=== PATIENT | female | born 1980 | race Caucasian/White ===

== ENCOUNTER → 2017-12-17 11:49 | Outpatient (CLI) | payer OTHER, MEDICAID, SELFPAY ==
[2017-12-17 12:30] LABS: Add Manual Diff / Slide Review NO; Basophils Percent Auto 0.3 % (0-2); Eosinophils Percent Auto 1.6 % (2-4); Hematocrit 36.6 % (36-46); Hemoglobin 12.4 g/dL (12.0-16.0); Lymphocytes Percent Auto 24.7 % (25-40); Mean Corpuscular HGB Conc 33.9 % (30-36); Mean Corpuscular Hemoglobin 29.9 PG (26-34); Mean Corpuscular Volume 88.1 fL (80-100); Monocytes Percent Auto 7.4 % (3-14); Neutrophils Absolute Auto 5200 /uL (3000-5900); Platelet Count 243 X10^3/uL (150-400); Red Blood Cell Count 4.15 X10^6/uL (4.0-5.2); Red Cell Distribution Width 15.4 % (11.6-14.8); White Blood Cell Count 7.9 X10^3/uL (4.5-11.0)
[2017-12-17 20:47] LABS: Hepatitis B Surface Antigen NEGATIVE s/c (NEGATIVE); Rubella Antibody IgG 58.9 IU/mL (>15)
[2017-12-17 20:57] LABS: HIV 1 and 2 Antibody NEGATIVE (NEGATIVE); Hep C Virus Ab w/Reflex Quant NEGATIVE s/c (NEGATIVE)
[2017-12-19 15:09] LABS: HSV 2 IGG AB < 0.90 index (< 0.90)
[2017-12-22 15:26] LABS: Rapid Plasma Reagin NON-REACTIVE
== END ==
PROVIDERS: Visit Provider Obstetrics & Gynecology
DX: Z34.91 Encounter for supervision of normal pregnancy, unspecified, first trimester (principal)
CPT/HCPCS: 36415; 80055; 86695; 86696; 86703; 86787; 86803; 86850; 86900; 86901; 87086

== ENCOUNTER → 2018-01-14 14:55 | Outpatient (CLI) | payer OTHER, MEDICAID, SELFPAY ==
[2018-01-14 17:59] LABS: Urine Amphetamines Negative (Negative); Urine Barbiturates Negative (Negative); Urine Benzodiazepines Negative (Negative); Urine Cocaine Negative (Negative); Urine MDMA Negative (Negative); Urine Methadone Negative (Negative); Urine Methamphetamines Negative (Negative); Urine Morphine/Opi cutoff 2000 Negative (Negative); Urine Oxycodone Negative (Negative); Urine Phencyclidine Negative (Negative); Urine Tetrahydrocannabinol Negative (Negative); Urine Tricyclic Antidepressant Negative (Negative)
== END ==
PROVIDERS: Visit Provider Obstetrics & Gynecology
DX: Z34.81 Encounter for supervision of other normal pregnancy, first trimester (principal)
CPT/HCPCS: 80305

== ENCOUNTER → 2018-02-11 11:06 | Outpatient (CLI) | payer OTHER, MEDICAID, SELFPAY ==
[2018-02-16 13:34] LABS: AFP, Serum 44.8 ng/mL; Calc Gestational Age 17.1; Cigarette Smoker Y; Donated Egg NOT GIVEN; Donor Egg Age NOT GIVEN; Estriol, Free 0.89 ng/mL; Inhibin A, Dimeric 411 pg/mL; Maternal Weight 143 lbs; Number of Fetuses NOT GIVEN; Previous Pregnancy Down Syndro NOT GIVEN; hCG, MoM 1.58; hCG, Serum 44.9 IU/mL
== END ==
PROVIDERS: Visit Provider Obstetrics & Gynecology
DX: Z34.92 Encounter for supervision of normal pregnancy, unspecified, second trimester (principal)
CPT/HCPCS: 36415; 82105; 82677; 84702; 86336

== ENCOUNTER → 2018-03-05 10:08 | Outpatient (CLI) | payer OTHER, MEDICAID, SELFPAY ==
--- NOTE | 2018-03-05 10:10 | DI.US.S_ITS ---
PROCEDURE: US OB >= 14 WEEKS FETUS INDICATIONS: ANATOMY OUTSIDE/PRIOR DATING DATA: Last menstrual period (LMP): 10/14/17. LMP-based estimated date of delivery (ZENOBIA): 07/06/18. First dating scan (date and location): 12/19/17. Estimated date of delivery (ZENOBIA) from first dating scan: 07/21/18. TECHNIQUE: Real-time scanning was performed of the fetus, with image documentation and biometric measurements. Endovaginal scanning: No COMPARISON: [facility], , OB >= 14 WEEKS FETUS, 02/11/2018, 10:58. FINDINGS: General: A single living intrauterine gestation is present. Presentation: Vertex. Placenta: Placental position is posterior, without previa. Amniotic fluid index: 12.2 cm, normal range is 5-24 cm. heart rate: 141 beats per minute. Maternal cervical canal: 3.7 cm long. Normal lower limit is 2.5 cm. biometrics: Biparietal diameter: 20 weeks 2 days Head circumference: 20 weeks Abdominal circumference: 19 weeks 6 days Femur length: 20 weeks 2 days Estimated gestational age from initial scan: not applicable. Composite gestational age from present scan: 20 weeks 2 days Measurement variability for biometric dating: +/- 7 days from 14 weeks to 15 weeks 6 days gestation, +/- 10 days from 16 weeks to 21 weeks 6 days gestation, +/- 2 weeks from 22 weeks to 27 weeks 6 days gestation, +/- 3 weeks for 28 weeks gestation or later. weight reference: 4500 g or EFW >90/95% is considered macrosomia or large for gestational age. EFW <10% is small for gestational age. EFW 5% or less is considered intra-uterine growth restriction. Anatomic survey: Neuro: Ventricles are non-dilated at less than 10 mm. Cisterna magna is normal at 3-11 mm. Cerebellum is normal in size and morphology. Nuchal skin fold: Normal at less than 6 mm between 14-21 weeks gestational age. Face: Nose and lips, facial profile are normal. Spine: No evidence for spina bifida. Heart: 4-chambered heart is present, with normal ventricular outflow tracts. Diaphragm: Diaphragm is intact. Stomach: Left-sided stomach is present. Kidneys: No hydronephrosis. Normal is less than 5 mm in 2nd trimester, less than 7 mm in 3rd trimester. Cord: 3-vessel cord has orthotopic insertion. Bladder: Normal in size. Extremities: All 4 extremities identified. IMPRESSION: 1. Single living IUP with mean gestational age of 20 weeks 2 days corresponding to ultrasound ZENOBIA of 07/21/18. 2. Normal anatomic survey. Dictated by: Dennys Zelaya RRA Interpreted: Shruthi Gleason MD on 03/05/2018 at 11:12 Approved by: Shruthi Gleason MD, PhD on 03/05/2018 at 14:35
== END ==
PROVIDERS: Visit Provider Obstetrics & Gynecology
DX: Z34.82 Encounter for supervision of other normal pregnancy, second trimester (principal); Z36.89 Encounter for other specified antenatal screening; Z3A.20 20 weeks gestation of pregnancy
CPT/HCPCS: 76811

== ENCOUNTER → 2018-04-03 14:07 | Outpatient (CLI) | payer OTHER, MEDICAID, SELFPAY ==
[2018-04-03 16:04] LABS: Hematocrit 29.7 % (36-46); Hemoglobin 10.1 g/dL (12.0-16.0)
[2018-04-03 16:27] LABS: GTT (PREG) 1 Hour PP 50gm Dose 175 mg/dL (76-139)
== END ==
PROVIDERS: Visit Provider Obstetrics & Gynecology
DX: Z3A.22 22 weeks gestation of pregnancy (principal)
CPT/HCPCS: 82950; 85014; 85018

== ENCOUNTER → 2018-04-08 07:22 | Outpatient (CLI) | payer OTHER, MEDICAID, SELFPAY ==
[2018-04-08 10:07] LABS: Glucose Fasting Gestational 72 mg/dL (76-95)
[2018-04-08 10:10] LABS: Glucose 1 Hour Gest 135 mg/dL (76-180)
[2018-04-08 12:00] LABS: Glucose 2 Hour Gest 108 mg/dL (76-155)
[2018-04-08 12:02] LABS: Glucose Tol Interp,Gestational INTERPRETATION
[2018-04-08 12:45] LABS: Glucose 3 Hour Gest 75 mg/dL (76-140)
== END ==
PROVIDERS: Visit Provider Obstetrics & Gynecology
DX: R73.09 Other abnormal glucose (principal)
CPT/HCPCS: 36415; 82951; 82952

== ENCOUNTER → 2018-06-17 08:16 | Outpatient (CLI) | payer OTHER, MEDICAID, SELFPAY ==
[2018-06-18 16:27] LABS: Strep Grp B PCR NEG for Grp B Strep
== END ==
PROVIDERS: Visit Provider Obstetrics & Gynecology
DX: Z34.83 Encounter for supervision of other normal pregnancy, third trimester (principal)
CPT/HCPCS: 87653

== ENCOUNTER → 2018-07-08 10:39 | Outpatient (CLI) | payer OTHER, MEDICAID, SELFPAY | PROVIDERS: Visit Provider Obstetrics & Gynecology | DX: Z34.93 Encounter for supervision of normal pregnancy, unspecified, third trimester (principal); Z3A.38 38 weeks gestation of pregnancy | CPT/HCPCS: 87086 ==

== ENCOUNTER 2018-07-13 20:00 | Outpatient (CLI) | payer OTHER, MEDICAID, SELFPAY | END 2018-07-13 21:28 | disposition home or self-care (01) | LOC: OB 07-14 14:56 | PROVIDERS: Visit Provider Obstetrics & Gynecology | DX: Z34.83 Encounter for supervision of other normal pregnancy, third trimester (principal); R10.9 Unspecified abdominal pain; Z3A.38 38 weeks gestation of pregnancy | CPT/HCPCS: 59025; G0378; G0379 ==

== ENCOUNTER 2018-07-20 06:41 | Inpatient (IN) | payer OTHER, MEDICAID, SELFPAY ==
[2018-07-20 07:20] VITALS: BP 123/71
[2018-07-20 07:31] VITALS: BP 123/71
[2018-07-20] MEDS: LACTATED RINGERS 1,000 ML 100 ML IV ×4 (07:47→17:38)
[2018-07-20] MEDS: OXYTOCIN PREMIX 30 UNIT/500 ML PLAST..BAG IV (07:47)
[2018-07-20 08:15] LABS: Add Manual Diff / Slide Review NO; Basophils Absolute Auto 100 /uL (0-100); Basophils Percent Auto 0.5 % (0-2); Eosinophils Absolute Auto 200 /uL (0-450); Eosinophils Percent Auto 1.7 % (2-4); Hematocrit 34.1 % (36-46); Hemoglobin 11.6 g/dL (12.0-16.0); Lymphocytes Absolute Auto 2200 /uL (1100-4500); Lymphocytes Percent Auto 19.2 % (25-40); Mean Corpuscular HGB Conc 33.9 % (30-36); Mean Corpuscular Hemoglobin 30.7 PG (26-34); Mean Corpuscular Volume 90.5 fL (80-100); Monocytes Absolute Auto 1000 /uL (0-900); Monocytes Percent Auto 9.1 % (3-14); Neutrophils Absolute Auto 8000 /uL (1500-7000); Neutrophils Percent Auto 69.5 % (50-75); Platelet Count 262 X10^3/uL (150-400); Red Blood Cell Count 3.77 X10^6/uL (4.0-5.2); White Blood Cell Count 11.5 X10^3/uL (4.5-11.0)
[2018-07-20] MEDS: fentaNYL 100 MCG/2 ML INJ IV (15:25)
--- NOTE | 2018-07-20 19:43 | PM.OBHP.1 ---
OB HPI Date/Time Date of admission: 07/20/18 Date Patient Seen: 07/20/18 Time Patient Seen: 11:30 History of Present Condition Chief complaint: evaluation of labor : 2 Para: 1 Narrative: Sheila Thompson is a 38 year old female 2 para 1 at 39-,6/7 weeks gestation for induction of labor Indications Indication for induction OB: other (Advanced maternal age, smoker) History of Present care: initiated at week # (12), number of visits (12) and pounds weight gain (8) Dating criteria: LMP confirmed by 1st trimester US Ultrasounds: normal 1st trimester US and normal mid trimester US Obstetrical complications: none Medical complications: neurological (Migraine) and psychiatric (Anxiety) Preadmission Labs Blood type: A (+) positive -: Antibody screen: negative, GBS status: negative, HBsAG: negative, HIV: negative, HSV 1: positive, HSV 2: negative and RPR/VDLR: negative -: Chlamydia screen: not detected and Gonorrhea screen: not detected -: Rubella: immune and Varicella: immune HCT: 29.7 HCAB: negative PAP: Abnormal (LGSIL) Urine: Mixed 1 hr GTT: 175 3 hr GTT: 1 hr (135), 2 hr (108) and 3 hr (75) Fasting blood glucose: 72 Prior (ies) History: 1 5#12oz Evaluation Evaluation Baseline heart rate: 135 Variability: Moderate (11-25) monitor accelerations: Present monitor decelerations: Absent Uterine Contraction Intensity: Strong/Firm Category of Tracing: I Cervical dilation (cm): 5 Cervical effacement (%): 80 station: -1 Laboratory results: Laboratory Tests 07/20/18 07/20/18 07:00 07:00 WBC 11.5 H RBC 3.77 L Hgb 11.6 L Hct 34.1 L MCV 90.5 MCH 30.7 MCHC 33.9 RDW 14.0 Plt Count 262 Neut % (Auto) 69.5 Lymph % (Auto) 19.2 L [place] % (Auto) 9.1 Eos % (Auto) 1.7 L Baso % (Auto) 0.5 Neut # (Auto) 8000 H Lymph # (Auto) 2200 [place] # (Auto) 1000 H Eos # (Auto) 200 Baso # (Auto) 100 Blood Type A Positive Antibody Screen Negative PFSH Medical History Anxiety (Chronic) History of live (Resolved 07/12/00) Surgical History History of cholecystectomy (Resolved 08/21/00) Family History Father Diabetes mellitus Grandmother MVA (motor vehicle accident) Mother Epilepsy Dementia Grandfather Heart attack Grandmother Head trauma Brother ADHD (attention deficit hyperactivity disorder) Sister Anxiety Depression Diabetes mellitus Social History Smoking Status: Current every day smoker Social History Smoking Status: Current every day smoker Meds Home Medications Medication Instructions Recorded Confirmed Type 1 tab PO DAILY #90 tab 12/01/17 07/20/18 Rx vitamin,calcium,hzmevdhe-xamx-lcgws acid tablet citalopram 10 mg tablet 10 mg PO DAILY #30 tab 12/19/17 07/20/18 Rx Double Electric Breast Pump #1 ea 05/06/18 07/20/18 Rx ferrous gluconate 324 mg (38 mg 324 mg PO DAILY #30 tab 05/18/18 07/20/18 Rx iron) tablet Allergies Allergy/AdvReac Type Severity Reaction Status Date / Time cephalexin Allergy Severe FACIAL Verified 11/24/17 17:58 SWELLING Exam Vital Signs (past 8 hours): Generally: Patient is sitting up in bed, no acute distress Lungs: Clear to auscultation bilaterally Cardiovascular: Regular rate and rhythm Fundal height: 38 cm Extremities: Negative Homans, no edema Objective Labs Result Diagrams: 07/20/18 07:00 Labs: Laboratory Results - last 24 hr 07/20/18 07/20/18 07:00 07:00 WBC 11.5 H RBC 3.77 L Hgb 11.6 L Hct 34.1 L MCV 90.5 MCH 30.7 MCHC 33.9 RDW 14.0 Plt Count 262 Neut % (Auto) 69.5 Lymph % (Auto) 19.2 L [place] % (Auto) 9.1 Eos % (Auto) 1.7 L Baso % (Auto) 0.5 Neut # (Auto) 8000 H Lymph # (Auto) 2200 [place] # (Auto) 1000 H Eos # (Auto) 200 Baso # (Auto) 100 Blood Type A Positive Antibody Screen Negative Assessment and Plan (1) 39 weeks gestation of : Current visit: Yes Status: Acute (2) Elderly multigravida in third trimester: Current visit: Yes Status: Acute (3) Smoker: Current visit: Yes Status: Acute Plan: Assessment: 38-year-old 2 para 1 at 39-,6/7 weeks gestation for induction of labor due to advanced maternal age and smoker Plan: Pitocin per protocol 2 Artificial rupture of membranes with small amount of clear amniotic fluid Epidural as necessary Expected management to spontaneous vaginal delivery
--- NOTE | 2018-07-20 19:53 | PM.OBPRVD ---
Delivery date: 07/20/18 Intrapartal events: Intolerance (Prolonged decel at 5cm, Deep variable decels during ) Induction method: per pitocin protocol Delivery augmentation: rupture of membranes Delivery monitor: external FHT and external uterine Route of delivery: vacuum extraction Indication for instrumentation: nonreassuring FHR tracing Episiotomy description: None L&D Laceration Description: None Estimated blood loss (mL): 100 Anesthesia type: Epidural Complications: Double nuchal cord requiring vacuum extraction Narrative: Patient complete and pushed for 20 min. 1823, a live male female delivered with vacuum extraction due to deep variable decelerations during pushing. A double nuchal cord was cut on the perineum. The remainder of the body delivered without difficulty and was placed on mom's abdomen. Pitocin was given in the IV fluids. Cord bloods were obtained. At 1825, the placenta delivered intact with a three-vessel cord. Fundus firm. No lacerations. Apgars 8 at 1 min and 9 at 5 min. Estimated blood loss 100 cc. Epidural analgesia. . Mom and infant stable to recovery. Plan for aftercare: To routine care
[2018-07-21] MEDS: IBUPROFEN 600 MG TABLET PO ×3 (00:34→12:10)
[2018-07-21 07:01] LABS: Hematocrit 31.8 % (36-46); Hemoglobin 10.3 g/dL (12.0-16.0)
[2018-07-21] MEDS: PRENATAL VIT,CALC/IRON/FOLIC 1 TABLET 1 TAB PO (09:57)
[2018-07-21] MEDS: DOCUSATE 250 MG CAPSULE PO (09:57)
--- NOTE | 2018-07-21 14:19 | PM.OBDS.1 ---
Discharge Providers Date of admission: 07/20/18 06:41 Consults: 07/20/18 22:01 Consult to [employer] Routine Comment: Discharge provider: Nicci Fajardo MD Discharge Date: 07/21/18 Summary Date Patient Seen: 07/21/18 Time Patient Seen: 14:20 Hospital Course: Patient is a 38-year-old 2 para 2 who presented on 07/20/2018 for scheduled induction of labor at 39-,6/7 weeks gestation. She was started on Pitocin. Artificial rupture of membranes was performed with clear amniotic fluid. She progressed to complete dilation. She had a vacuum assisted vaginal delivery secondary to deep variable deceleration with the end of pushing. There were nuchal cord x2 which were cut on the perineum. She had no lacerations. Her course was unremarkable. Peripartum Data Delivery Method: Assisted Delivery (Vacuum) Laceration description: None Episiotomy description: None Procedures: Pitocin induction of labor Artificial rupture of membranes Epidural analgesia complications: none Discharge Diagnosis (1) 39 weeks gestation of : Status: Acute (2) Elderly multigravida in third trimester: Status: Acute (3) Smoker: Status: Acute Status at Discharge Functional status at discharge: independent ambulation Overall status at discharge: patient is progressing back to baseline Time Spent with Patient Total time spent providing and/or coordinating discharge services: Less than 30 minutes Time spent discussing smoking cessation with patient: 3 to 10 minutes Objective Labs Result Diagrams: 07/21/18 06:50 Labs: Laboratory Results - last 24 hr 07/21/18 06:50 Hgb 10.3 L Hct 31.8 L Discharge Plan Discharge Plan Patient Disposition: Home Discharge comment: Call with fever, chills or bleeding vaginally more than a pad in an hour Discharge Med Rec/Prescriptions Prescriptions: Continued prenat.vits,surekha,lsn-oiju-ubtlq tablet 1 tab PO DAILY Qty: 90 RF: 3 ferrous gluconate 324 mg (38 mg iron) tablet 324 mg PO DAILY Qty: 30 RF: 6 citalopram [Celexa] 10 mg tablet 10 mg PO DAILY Qty: 30 RF: 3 No Action Double Electric Breast Pump Qty: 1 RF: 0 Follow up/Referrals: Nicci Fajardo MD [Physician] - 6 Weeks Provider Discharge Instructions Diet: Diet as Tolerated Activity: No intercourse Skin/Wound/Dressing Care Report to your healthcare provider any signs of infection, such as:: chills, fever, increased pain and unusual drainage Visit Report/Discharge Packet Instructions: DI for Labor and Delivery, Vaginal Discharge Data Attending Provider: Nicci Fajardo Admit Date/Time: 07/20/18 06:41
[2018-07-21 15:23] VITALS: BP 114/65; PULSE 77; RESP 16; TEMP 36.8
== END 2018-07-21 16:06 | disposition home or self-care (01) | DRG 560 ==
PROVIDERS: Admitting Provider Obstetrics & Gynecology; Visit Provider Obstetrics & Gynecology
DX: O69.1XX0 Labor and delivery complicated by cord around neck, with compression, not applicable or unspecified (principal); Z3A.39 39 weeks gestation of pregnancy; Z37.0 Single live birth; O76 Abnormality in fetal heart rate and rhythm complicating labor and delivery
CPT/HCPCS: 01967; 36415; 59050; 59409; 85014; 85018; 85025; 86850; 86900; 86901; G0379; J2405; J2590; J3010

== ENCOUNTER → 2018-09-01 12:40 | Outpatient (CLI) | payer OTHER, MEDICAID, SELFPAY ==
[2018-09-01 15:58] LABS: Free T4, Direct Thyroxine 1.09 ng/dL (0.78-2.19)
[2018-09-01 16:15] LABS: Thyroid Stimulating Hormone 1.27 uIU/mL (0.47-4.68)
== END ==
PROVIDERS: Visit Provider Obstetrics & Gynecology
DX: R53.83 Other fatigue (principal); Z39.2 Encounter for routine postpartum follow-up
CPT/HCPCS: 36415; 84439; 84443

== ENCOUNTER → 2018-09-07 07:40 | Outpatient (CLI) | payer OTHER, MEDICAID, SELFPAY ==
--- NOTE | 2018-09-07 07:42 | DI.US.S_ITS ---
PROCEDURE: US THYROID INDICATIONS: Enlarged thyroid on exam TECHNIQUE: Real-time scanning was performed of the thyroid gland, with image documentation. COMPARISON: None. FINDINGS: Right: Thyroid lobe measures 5.8 x 2.2 x 1.4 cm, and is homogeneous in echotexture. Left: Thyroid lobe measures 5.3 x 2.1 x 1.5 cm, and is homogenous in echotexture. Isthmus: 5 mm thick. Nodule number: 1 Location: right mid/medial Size: 0.6 x 0.3 x 0.6 cm. Composition: Predominantly cystic Echogenicity: The hypoechoic Shape: wider than tall. Margins: Smooth Echogenic foci: None Total points: 2 ACR TI-RADS category: 2 Nodule number: 2 Location: Left mid Size: 1.0 x 0.6 x 0.9 cm. Composition: Solid Echogenicity: Isoechoic Shape: wider than tall. Margins: Smooth Echogenic foci: None Total points: 3 ACR TI-RADS category: 3 IMPRESSION: 1. A 1.0 cm isoechoic left mid thyroid nodule which is of mild suspicion. FNA if 2.5 cm or larger, follow up if 1.5 cm or larger. Recommend surveillance imaging at one, 3, and 5 years 2. A 0.6 cm hypoechoic right thyroid nodule which is not suspicious. No fine-needle aspiration needed. Attention can be made on subsequent routine surveillance of the left thyroid nodule. ACR TI-RADS definitions and recommendations: TI-RADS 1 (benign): 0 points. FNA not needed. TI-RADS 2 (not suspicious): 2 points. FNA not needed. TI-RADS 3 (mildly suspicious): 3 points. * FNA if 2.5 cm or larger, follow up if 1.5 cm or larger (at 1, 3, and 5 years). TI-RADS 4 (moderately suspicious): 4-6 points. * FNA if 1.5 cm or larger, follow up if 1 centimeters or larger (at 1, 2, 3, and 5 years). TI-RADS 5 (highly suspicious): 7 points or more. * FNA if 1 cm or larger, follow up if 0.5 cm or larger (every year for 5 years). Dictated by: Richard Baptiste M.D. on 09/07/2018 at 8:40 Approved by: Richard Baptiste M.D. on 09/07/2018 at 8:54
== END ==
PROVIDERS: Family Provider Obstetrics & Gynecology; Visit Provider Obstetrics & Gynecology
DX: E04.2 Nontoxic multinodular goiter (principal)
CPT/HCPCS: 76536

== ENCOUNTER → 2018-11-26 08:24 | Outpatient (CLI) | payer OTHER, MEDICAID, SELFPAY ==
[2018-11-26 09:38] LABS: Hematocrit 39.5 % (36-46); Hemoglobin 13.2 g/dL (12.0-16.0); Mean Corpuscular HGB Conc 33.3 % (30-36); Mean Corpuscular Hemoglobin 31.5 PG (26-34); Mean Corpuscular Volume 94.6 fL (80-100); Platelet Count 224 X10^3/uL (150-400); Red Blood Cell Count 4.18 X10^6/uL (4.0-5.2); Red Cell Distribution Width 13.7 % (11.6-14.8); White Blood Cell Count 8.9 X10^3/uL (4.5-11.0)
[2018-11-26 10:13] LABS: Alanine Aminotransferase 20 IU/L (9-52); Albumin Globulin Ratio 1.5 (1.0-2.8); Alkaline Phosphatase 51 U/L (38-126); Aspartate Aminotransferase 23 IU/L (14-36); Bilirubin Total 0.6 mg/dL (0.2-1.3); Blood Urea Nitrogen 7 mg/dL (7-17); Calcium 9.4 mg/dL (8.4-10.2); Carbon Dioxide 26 mmol/L (22-32); Chloride 109 mmol/L (98-107); Estimated Glomerular Filt Rate > 60.0 mL/min (>60); Globulin 2.7 g/dL (1.7-4.1); Glucose 88 mg/dL (70-100); HEMOLYSIS < 15 (0-50); Potassium 4.8 mmol/L (3.4-5.1); Sodium 141 mmol/L (137-145); Total Protein 6.7 g/dL (6.3-8.2)
== END ==
PROVIDERS: Family Provider Obstetrics & Gynecology; PCP Nurse Practitioner Family; Visit Provider Nurse Practitioner Family
DX: D64.9 Anemia, unspecified (principal)
CPT/HCPCS: 36415; 80053; 85027

== ENCOUNTER 2018-11-26 08:34 | Day surgery (SDC) | payer OTHER, MEDICAID, SELFPAY ==
[2018-11-11 08:14] VITALS: BMI 24.3
[2018-11-26] VITALS (7 sets, daily range): BP systolic 98–135; BP diastolic 65–87; PULSE 62–84; RESP 13–18; TEMP 36.3–37.4; O2SAT 95–100; BMI 24.3
--- NOTE | 2018-11-26 | PATH_ITS ---
[facility] Accession Number: [id number] . 01 Material submitted: . endocervix - CERVIX, ENDOCERVICAL . 01 Clinical history: . ANTERIOR LIP OF CERVIX - LONG SUTURE AT 12:00 POSTERIOR LIP OF THE CERVIX - SHORT SUTURE AT 6:00 ENDOCERVICAL COMPONENT UNTAGGED . 02 Diagnosis: Anterior Lip of Cervix, Posterior Lip of Cervix, and Endocervix, LEEP Biopsies: Anterior lip, long suture 12 o'clock: High-grade squamous intraepithelial lesion/JANELL 2-3 with gland neck involvement and low grade squamous intraepithelial lesion/JANELL-1. High-grade squamous intraepithelial lesion/JANELL 2-3 focally involves the endocervical margin. The apparent ectocervical margin is negative for dysplasia. No invasive tumor identified. . Posterior lip, short suture 6 o'clock: Low-grade squamous intraepithelial lesion/JANELL-1. Low-grade squamous intraepithelial lesion/JANELL-1 focally involves the endocervical margin. The apparent ectocervical margin is negative for dysplasia. Negative for high-grade dysplasia and invasive tumor. . Grossly described as piece #3 (presumed endocervix untagged): High-grade squamous intraepithelial lesion/JANELL 2-3 and adjacent low-grade squamous intraepithelial lesion/JANELL-1. The apparent tissue margins are negative for dysplasia. No invasive tumor identified. . Grossly described as piece #4 (presumed endocervix untagged): High-grade squamous intraepithelial lesion/JANELL 2-3. Detached fragment of high-grade squamous intraepithelial lesion/JANELL-2 is present in proximity to an inked margin. Tissue margins indeterminate due to possible tissue fragmentation. No invasive tumor identified. [facility]/11/30/2018 . 02 Comment: This biopsy correlates with Pap smear #[id number]. . 02 Electronically signed: . Lani Garcia MD, Pathologist NPI- [id number] . 01 Gross description: . Received in formalin, labeled anterior lip of cervix-long suture @ 12 o'clock, posterior lip of the cervix-short suture @ 6 o'clock, endocervical component-untagged, are four pieces of cervical tissue. Piece #1 (1.8 x 1.5 x 0.8 cm) contains a two-tailed long suture indicating 12 o'clock. Piece #2 (2.5 x 1.0 x 0.2 cm) contains a two-tailed short suture indicating 6 o'clock. Piece #3 (1.8 x 1.0 x 0.3 cm) and piece #4 (1.5 x 1.0 x 0.4 cm) are unoriented. The pieces have johnson-pink smooth shiny and focally rough mucosa. No nodules, masses or lesions are identified. The possible endocervical margins are inked orange and the possible ectocervical and stromal margins are inked blue. The tissue is serially sectioned and submitted as follows: (A1-A3) piece #1, entirely submitted left to right; (A4-A6) piece #2, entirely submitted right to left; (A7-A8) piece #3, entirely submitted; (A9-A10) piece #4, entirely submitted. ([id number]) /MRV . 02 Pathologist provided ICD-10: N87.1 . 02 CPT . 954281, 122778, 564890 Performed at: 01 [facility] [address] [id number] MD Hermilo Coronado MD Phone: [phone] Performed at: 02 [facility] [address] [place], [place] [id number] MD Rebecca Rosario MD Phone: [phone]
[2018-11-26] MEDS: LACTATED RINGERS 1,000 ML 42 ML IV (09:00)
--- NOTE | 2018-11-26 09:16 | PM.HP.1 ---
History of Present Illness Date Patient Seen: 11/26/18 Time Patient Seen: 09:16 Chief complaint: [id number] LEEP CONE BX Narrative: Patient is a 38-year-old 2 para 2 with JANELL 2-3 of the cervix here for LEEP cone biopsy of the cervix Patient History Medical History (Updated 11/26/18 @ 09:18 by Nicci Fajardo MD) Depression (Acute) (Acute) Shingles (Acute ~09/2018) Thyroid nodule (Acute) Anxiety (Chronic) History of live (Resolved 07/20/18) Surgical History (Updated 12/15/17 @ 11:53 by Mayelin Ovalles) History of cholecystectomy (Resolved 08/21/00) Family History (Updated 12/15/17 @ 11:56 by Mayelin Ovalles) Father Diabetes mellitus Grandmother MVA (motor vehicle accident) Mother Epilepsy Dementia Grandfather Heart attack Grandmother Head trauma Brother ADHD (attention deficit hyperactivity disorder) Sister Anxiety Depression Diabetes mellitus Social History household members: children Smoking Status: Current every day smoker Tobacco: How many years used: 22 quit status: considering quitting (Patient given smoking cessation and quitline info) second hand exposure: No alcohol intake: current substance use type: does not use Family & Social History Social History: household members children Tobacco & Substance use: Tobacco type cigarettes Smoking Status Current every day smoker Smoking packs per day 0.5 alcohol intake current Substance Use Type does not use Meds Home Medications Medication Instructions Recorded Confirmed Type Double Electric Breast Pump #1 ea 05/06/18 10/30/18 Rx ferrous gluconate 324 mg (38 mg 324 mg PO DAILY #30 tab 05/18/18 11/11/18 Rx iron) tablet escitalopram 10 mg tablet 10 mg PO DAILY #90 tab 10/30/18 11/11/18 Rx Allergies Allergy/AdvReac Type Severity Reaction Status Date / Time cephalexin Allergy Severe FACIAL Verified 11/26/18 08:51 SWELLING Exam Vital Signs (past 8 hours): - 11/26/18 08:52 Temperature 97.9 F Pulse Rate 78 Respiratory Rate 16 Blood Pressure 118/65 Pulse Oximetry 98 Oxygen Delivery Method Room Air Narrative Exam Narrative: HEENT: Thyromegaly, no anterior cervical or supraclavicular lymphadenopathy. Lungs:Clear to auscultation bilaterally, no wheezes. Cardiovascular: Regular rate and rhythm, no murmurs, rubs, or gallops. Abdomen: No scars. No hepatosplenomegaly. No masses palpable. External genitalia: Normal Vagina: Normal Cervix: Normal Bimanual exam: [6 Week size uterus. Mobile.] Rectal: No masses. Colposcopic biopsy: JANELL 2-3 at 12:00 p.m. 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 The risks including bleeding, infection, and weakening of the cervix with a future . She understands these risks and agrees to proceed. A full par Q was held and consent form was signed. Time Spent With Patient Time with patient: 15-24 minutes
--- NOTE | 2018-11-26 09:19 | PM.PREOP ---
Pre-operative Note Interval Note History & Physical reviewed/Exam performed by Physician: Yes Changes to H&P: No
--- NOTE | 2018-11-26 10:23 | SUR.OPER ---
Lithotomy on padded OR bed, head on pillow, arms secured on padded arm boards at <90 degrees abduction. Legs secured in padded yellow fins stirrups.
--- NOTE | 2018-11-26 11:16 | SUR.PHASEII ---
pt arrived to phase II via stretcher. pt sitting up, alert and talking to RN. iv site clear and infusing without difficultly. pt tolerating oral intake without difficultly. no drainage observed from procedure site. pt appears comfortable at this time and denies any nausea. bed in lowest position and call light given to pt. pt awaiting arrival of friend at this time.
--- NOTE | 2018-11-30 07:50 | PM.GYNOP.1 ---
Operative Date/Time/Diagnoses Date of procedure: 11/27/18 Time of procedure: 10:30 Pre-op diagnosis: JANELL 2-3 that extends into the endocervical canal Post-op diagnosis: same Procedure: Procedures Operation Date: 11/26/18 09:45 Actual Procedures Side Surgeon p LEEP Procedure Nicci Fajardo MD Indications: JANELL 2-3 on colposcopic biopsy that extends into the endocervical canal Surgeon: Nicci Fajardo Anesthesia Type: General (LMA) Operative Notes Findings: Lugol's light area from 10-12 o'clock which extends into the endocervical canal Closure Type: not applicable Specimen(s): other (Anterior and posterior lips of the cervix, endocervical component) Estimated blood loss (mL): 10 Blood products transfused: none Procedure in detail: After informed consent was obtained, the patient was taken to the operating room where she was placed in the dorsal supine position. After adequate LMA general anesthesia was achieved, she was placed in the dorsal lithotomy position, and prepped and draped in the usual sterile fashion. A time-out was performed. A plastic coated bivalve speculum was placed into the vagina. A plastic coated single-tooth tenaculum was placed on the anterior lip of the cervix. The cervix was coated with Lugol solution. There was a Lugol's light area at the 10 to 12 o'clock position which extended into the endocervical canal. Using the large loop with settings at 60 cut and 40 cautery, the posterior lip of the cervix was excised and tagged with a short suture at 6:00 a.m.. The anterior lip of the cervix was excised and tagged at the 12 o'clock position with a long suture. Using the small loop and endocervical component was obtained and was left untagged. The ball cautery was used for hemostasis. There was some brisk bleeding from the 10 o'clock position and a haeoba-fz-osetz suture with 2 0 chromic was placed for hemostasis. Hemostasis was achieved throughout the base of the cone biopsy. The instruments were removed from the vagina. The plastic coated single-tooth tenaculum was removed from the anterior lip of the cervix. The plastic coated bivalve speculum was removed from the vagina. Sponge, lap, and instrument counts were correct x2. The patient tolerated the procedure well, and was taken to PACU in stable condition. Complications: none Post-operative Condition: stable Plan for aftercare: Home after recovery
== END 2018-11-26 11:34 | disposition home or self-care (01) ==
PROVIDERS: Family Provider Obstetrics & Gynecology; PCP Nurse Practitioner Family; Visit Provider Obstetrics & Gynecology
PROC: 0UBC7ZZ Excision of Cervix, Via Natural or Artificial Opening (ICD-10-PCS; CPT 57522; principal; 2018-11-26 09:45)
DX: N87.1 Moderate cervical dysplasia (principal); F17.210 Nicotine dependence, cigarettes, uncomplicated; D64.9 Anemia, unspecified
CPT/HCPCS: 57522; 36415; 80053; 85027; J3010

== ENCOUNTER → 2020-07-13 08:57 | Outpatient (CLI) | payer OTHER, SELFPAY ==
--- NOTE | 2020-07-13 | DI.US.S_ITS ---
PROCEDURE: US THYROID INDICATIONS: NODULES TECHNIQUE: Real-time scanning was performed of the thyroid gland, with image documentation. COMPARISON: [facility], US, US THYROID, 09/07/2018, 8:03. FINDINGS: Right: Thyroid lobe measures 6.0 x 1.5 x 2.3 cm, and is mildly diffusely heterogeneous in echotexture. Left: Thyroid lobe measures 6.2 x 1.3 x 2.1 cm, and is mildly diffusely heterogeneous in echotexture. Isthmus: 5.4 mm thick. Nodule number: 1 Location: Right mid Size: Stable at 0.6 x 0.3 x 0.7 cm. Composition: Solid Echogenicity: Hypoechoic Shape: wider than tall. Margins: Smooth Echogenic foci: None Total points: 4 ACR TI-RADS category: Moderately suspicious Nodule number: 2 Location: Left mid Size: Stable at 1.1 x 0.6 x 1.0 cm. Composition: Solid Echogenicity: Hypoechoic Shape: wider than tall. Margins: Smooth Echogenic foci: None Total points: 4 ACR TI-RADS category: Moderately suspicious IMPRESSION: Stable appearance of bilateral thyroid nodules. Recommend follow-up thyroid ultrasound in 1 year. ACR TI-RADS definitions and recommendations: TI-RADS 1 (benign): 0 points. FNA not needed. TI-RADS 2 (not suspicious): 2 points. FNA not needed. TI-RADS 3 (mildly suspicious): 3 points. * FNA if 2.5 cm or larger, follow up if 1.5 cm or larger (at 1, 3, and 5 years). TI-RADS 4 (moderately suspicious): 4-6 points. * FNA if 1.5 cm or larger, follow up if 1 cm or larger (at 1, 2, 3, and 5 years). TI-RADS 5 (highly suspicious): 7 points or more. * FNA if 1 cm or larger, follow up if 0.5 cm or larger (every year for 5 years). Dictated by: Dennys CELIS Interpreted: Angel Dickson MD on 07/13/2020 at 10:32 Approved by: Angel Dickson M.D. on 07/13/2020 at 11:21
[2020-07-13 09:58] LABS: Hematocrit 37.4 % (36-46); Hemoglobin 12.8 g/dL (12.0-16.0); Mean Corpuscular HGB Conc 34.1 % (30-36); Mean Corpuscular Volume 90.8 fL (80-100); Platelet Count 225 X10^3/uL (150-400); Red Blood Cell Count 4.12 X10^6/uL (4.0-5.2); Red Cell Distribution Width 13.7 % (11.6-14.8); White Blood Cell Count 8.2 X10^3/uL (4.5-11.0)
[2020-07-13 10:21] LABS: Alanine Aminotransferase 20 IU/L (<35); Albumin 3.9 g/dL (3.5-5.0); Albumin Globulin Ratio 1.3 (1.0-2.8); Alkaline Phosphatase 57 U/L (38-126); Aspartate Aminotransferase 25 IU/L (14-36); BUN Creatinine Ratio 28.6 (6-22); Bilirubin Total 0.4 mg/dL (0.2-1.3); Blood Urea Nitrogen 18 mg/dL (7-17); Carbon Dioxide 26 mmol/L (22-32); Chloride 105 mmol/L (98-107); Estimated Glomerular Filt Rate > 60.0 mL/min (>60); Globulin 3.1 g/dL (1.7-4.1); Glucose 91 mg/dL (70-100); HEMOLYSIS < 15 (0-50); Potassium 4.1 mmol/L (3.4-5.1); Sodium 136 mmol/L (137-145)
== END ==
PROVIDERS: Family Provider Obstetrics & Gynecology; PCP Nurse Practitioner Family; Referring Provider Nurse Practitioner Family; Visit Provider Nurse Practitioner Family
DX: E04.2 Nontoxic multinodular goiter (principal)
CPT/HCPCS: 36415; 76536; 80053; 85027

== ENCOUNTER → 2023-01-06 07:25 | Outpatient (CLI) | payer OTHER, MEDICAID, SELFPAY ==
[2023-01-06 08:07] LABS: Hematocrit 37.7 % (36-46); Hemoglobin 12.7 g/dL (12.0-16.0); Mean Corpuscular HGB Conc 33.6 % (30-36); Mean Corpuscular Hemoglobin 30.7 PG (26-34); Mean Corpuscular Volume 91.4 fL (80-100); Platelet Count 260 X10^3/uL (150-400); Red Blood Cell Count 4.12 X10^6/uL (4.0-5.2); Red Cell Distribution Width 15.2 % (11.6-14.8); White Blood Cell Count 7.3 X10^3/uL (4.5-11.0)
[2023-01-06 08:21] LABS: Alanine Aminotransferase 21 IU/L (<35); Albumin Globulin Ratio 1.3 (1.0-2.8); Alkaline Phosphatase 60 U/L (38-126); Aspartate Aminotransferase 21 IU/L (14-36); BUN Creatinine Ratio 14.7 (6-22); Bilirubin Total 0.4 mg/dL (0.2-1.3); Blood Urea Nitrogen 10 mg/dL (7-17); Calcium 9.1 mg/dL (8.4-10.2); Carbon Dioxide 22 mmol/L (22-32); Chloride 107 mmol/L (98-107); Cholesterol 144 mg/dL (140-199); Estimated Glomerular Filt Rate > 60 mL/min (>60); Glucose 93 mg/dL (70-100); HDL Cholesterol 42 mg/dL (40-60); HEMOLYSIS < 15 (0-50); LDL Cholesterol Calculated 83 mg/dL (<100); Potassium 4.3 mmol/L (3.4-5.1); Sodium 135 mmol/L (137-145); Triglycerides 97 mg/dL (35-150)
[2023-01-06 08:51] LABS: TSH w/ Reflex to FT4 2.67 uIU/mL (0.47-4.68)
== END ==
PROVIDERS: Family Provider Obstetrics & Gynecology; PCP Registered Nurse Diabetes Educator; Referring Provider Registered Nurse Diabetes Educator; Visit Provider Registered Nurse Diabetes Educator
DX: Z00.00 Encounter for general adult medical examination without abnormal findings (principal); B35.1 Tinea unguium; Z51.81 Encounter for therapeutic drug level monitoring
CPT/HCPCS: 36415; 80053; 80061; 84443; 85027

== ENCOUNTER → 2023-01-10 07:44 | Outpatient (CLI) | payer OTHER, MEDICAID, SELFPAY ==
--- NOTE | 2023-01-10 | DI.MG.S_ITS ---
BILATERAL DIGITAL SCREENING MAMMOGRAM 3D/2D WITH CAD: 01/10/2023 CLINICAL: Baseline exam. No prior exams were available for comparison. Both breasts are heterogeneously dense, which may obscure small masses (category c / 51-75% glandular tissue). Current study was also evaluated with a Computer Aided Detection (CAD) system. No significant masses, calcifications, or other findings are seen in either breast. IMPRESSION: NEGATIVE There is no mammographic evidence of malignancy. A 1 year screening mammogram is recommended. Based on the Tyrer Cuzick model (a risk assessment model) the patient's lifetime risk is 9.9% and her 10 year risk is 1.3%. According to the ACR, ACS, and NCCN guidelines, an annual breast MRI exam along with mammogram is recommended if the patient's lifetime risk is 20% or greater. This exam was interpreted at Station ID: [id number]. NOTE: For mammograms, a report in lay terms will be sent to the patient. Approximately 15% of breast malignancies will not be visualized mammographically. In the management of a palpable breast mass, a negative mammogram must not discourage biopsy of a clinically suspicious lesion. Electronically Signed By: Carlee jain/sandra:01/10/2023 13:47:33 letter sent: Normal Exam ACR BI-RADS Category 1: Negative [id number]
--- NOTE | 2023-01-10 07:45 | DI.US.S_ITS ---
PROCEDURE: US THYROID INDICATIONS: FOLLOW UP NODULES TECHNIQUE: Real-time scanning was performed of the thyroid gland, with image documentation. COMPARISON: [facility], US, US THYROID, 07/13/2020, 9:20. FINDINGS: Right: Thyroid lobe measures 7.2 x 2 x 1.8 cm, and is heterogeneous in echotexture. Left: Thyroid lobe measures 6.4 x 2 x 1.9 cm, and is heterogeneous in echotexture. Isthmus: 8.6 mm thick. Nodule number: 1 Location: Mid pole of right thyroid lobe Size: 0.7 x 0.8 x 0.3 cm, previously 0.6 x 0.7 x 0.2 cm. Composition: Predominantly solid Echogenicity: Hypoechoic Shape: Wider than tall Margins: Smooth Echogenic foci: Non Total points: 4 ACR TI-RADS category: Moderately suspicious Nodule number: 2 Location: Mid pole of left thyroid Size: 1.2 x 1.2 x 0.8 cm, previously 1.1 x 1 x 0.6 cm. Composition: Predominantly solid Echogenicity: Hypoechoic Shape: Wider than tall Margins: Smooth Echogenic foci: Punctate Total points: 6 ACR TI-RADS category: Moderately suspicious. IMPRESSION: Bilateral thyroid lobes are minimally increased in size compared to previous study. No new thyroid nodule is seen. Continued ultrasound follow-up is recommended. ACR TI-RADS definitions and recommendations: TI-RADS 1 (benign): 0 points. FNA not needed. TI-RADS 2 (not suspicious): 2 points. FNA not needed. TI-RADS 3 (mildly suspicious): 3 points. * FNA if 2.5 cm or larger, follow up if 1.5 cm or larger (at 1, 3, and 5 years). TI-RADS 4 (moderately suspicious): 4-6 points. * FNA if 1.5 cm or larger, follow up if 1 cm or larger (at 1, 2, 3, and 5 years). TI-RADS 5 (highly suspicious): 7 points or more. * FNA if 1 cm or larger, follow up if 0.5 cm or larger (every year for 5 years). Dictated by: Deacon Wong M.D. on 01/10/2023 at 9:37 Approved by: Deacon Wong M.D. on 01/10/2023 at 9:39
== END ==
PROVIDERS: Family Provider Obstetrics & Gynecology; PCP Registered Nurse Diabetes Educator; Referring Provider Registered Nurse Diabetes Educator; Visit Provider Registered Nurse Diabetes Educator
DX: E04.2 Nontoxic multinodular goiter (principal); Z12.31 Encounter for screening mammogram for malignant neoplasm of breast
CPT/HCPCS: 76536; 77063; 77067

== ENCOUNTER → 2023-12-17 09:45 | Outpatient (CLI) | payer OTHER, MEDICAID, SELFPAY ==
--- NOTE | 2023-12-17 09:47 | DI.US.S_ITS ---
PROCEDURE: US THYROID INDICATIONS: reeval nodules TECHNIQUE: Real-time scanning was performed of the thyroid gland, with image documentation. COMPARISON: [facility], US, US THYROID, 09/07/2018, 8:03. [facility], US, US THYROID, 07/13/2020, 9:20. [facility], US, US THYROID, 01/10/2023, 8:04. FINDINGS: Thyroid: Right lobe measures 6.2 x 1.8 x 2.4 cm. Left lobe measures 6.4 x 1.5 x 2.2 cm. Isthmus is 0.5 cm thick. Echotexture is homogeneous. Nodule number: 1 Location: Right mid thyroid Size: 0.7 x 0.4 x 0.6 cm, not significantly changed. Composition: Solid Echogenicity: Hypoechoic Shape: wider than tall. Margins: Smooth Echogenic foci: None Total points: 4 ACR TI-RADS category: Moderately suspicious Nodule number: 2 Location: Left mid thyroid Size: 1.2 x 1.2 x 0.7 cm, not significantly changed Composition: Solid Echogenicity: Hypoechoic Shape: wider than tall. Margins: Smooth Echogenic foci: None Total points: 4 ACR TI-RADS category: Moderately suspicious IMPRESSION: Bilateral moderately suspicious thyroid nodules do not appear significantly changed dating back to the prior ultrasound from 09/07/2018. Additional imaging follow-up should be at the discretion of the ordering provider. ACR TI-RADS definitions and recommendations: TI-RADS 1 (benign): 0 points. FNA not needed. TI-RADS 2 (not suspicious): 2 points. FNA not needed. TI-RADS 3 (mildly suspicious): 3 points. * FNA if 2.5 cm or larger, follow up if 1.5 cm or larger (at 1, 3, and 5 years). TI-RADS 4 (moderately suspicious): 4-6 points. * FNA if 1.5 cm or larger, follow up if 1 cm or larger (at 1, 2, 3, and 5 years). TI-RADS 5 (highly suspicious): 7 points or more. * FNA if 1 cm or larger, follow up if 0.5 cm or larger (every year for 5 years). Approved by: Silvano Ross M.D. on 12/17/2023 at 17:12
== END ==
PROVIDERS: Family Provider Obstetrics & Gynecology; PCP Registered Nurse Diabetes Educator; Referring Provider Registered Nurse Diabetes Educator; Visit Provider Registered Nurse Diabetes Educator
DX: E04.2 Nontoxic multinodular goiter (principal)
CPT/HCPCS: 76536

== ENCOUNTER 2023-12-29 15:06 | Day surgery (SDC) | payer OTHER, MEDICAID, SELFPAY ==
[2023-12-29 15:27] VITALS: BP 116/80; PULSE 88; RESP 24; TEMP 36.7; O2SAT 96
[2023-12-29] MEDS: LACTATED RINGERS 1,000 ML 42 ML IV (15:37)
--- NOTE | 2023-12-29 15:38 | PM.HP.1 ---
History of Present Illness History of Present Illness Date Patient Seen: 12/29/23 Time Patient Seen: 15:38 Chief complaint: Dx Colonoscopy w/poss bx Narrative: Sheila is a 43 year old woman with rectal bleeding and symptoms of hemorrhoids. See office note for details. [facility] Medical History Multiple thyroid nodules (09/2018) Shingles (~09/2018) Thyroid nodule Depression History of live (07/20/18) Anxiety Surgical History History of cholecystectomy (08/21/00) Family History Father Diabetes mellitus Grandmother MVA (motor vehicle accident) Mother Epilepsy Dementia Grandfather Heart attack Grandmother Head trauma Brother ADHD (attention deficit hyperactivity disorder) Sister Anxiety Depression Diabetes mellitus Social History household members: children Smoking Status: Current every day smoker Tobacco: How many years used: 22 quit status: considering quitting (Patient given smoking cessation and quitline info) second hand exposure: No alcohol intake: current substance use type: does not use Meds Home Medications and Allergies Home Medications Medication Instructions Recorded Confirmed Type hydrocortisone acetate 25 mg 25 mg [place] TID PRN hemorrhoids #24 ea 10/22/23 11/19/23 Rx rectal suppository (Anusol-HC) escitalopram oxalate 10 mg tablet 15 mg (1.5 x 10 mg) PO DAILY #90 12/25/23 12/29/23 Rx tabs Allergies Allergy/AdvReac Type Severity Reaction Status Date / Time cephalexin Allergy Severe FACIAL Verified 12/29/23 15:20 SWELLING Exam Vital Signs (past 8 hours): - 12/29/23 15:27 Temperature 98.1 F Pulse Rate 88 Respiratory Rate 24 Blood Pressure 116/80 Pulse Oximetry 96 Oxygen Delivery Method Room Air Oxygen Delivery Method Room Air Const General: No acute distress Resp Effort & Inspection: normal respiratory effort Assessment & Plan Assessment and plan (1) Rectal bleeding: Status: Acute Plan We reviewed the risks and benefits of colonoscopy and she would like to proceed. Time-Based Coding :: [TOTAL MINUTES] spent with patient and on the chart (including review of chart, obtaining history, exam, reviewing outside data, placing orders, documenting exam and treatment plan, and counseling patient) on [DATE].
--- NOTE | 2023-12-29 16:34 | PM.OP.COLON ---
Operative Date/Time/Diagnoses Date of procedure: 12/29/23 Time of procedure: 16:34 Pre-op diagnosis: Rectal bleeding Post-op diagnosis: same Procedure & Clinicians Study performed: Colonoscopy Same procedure as scheduled: Yes Surgeon: Benton William Procedure Notes Procedure in detail: Surgeon: Benton William MD Anesthesia: Yessenia Contreras MD Procedure: The patient was brought to the endoscopy suite, placed in left lateral decubitus position. The patient was connected to monitoring devices. A time-out was performed. Sedation was administered. Once the patient was adequately sedated, a digital rectal exam was performed and was normal except for external hemorrhoids. The scope was then inserted and advanced to the cecum where the appendiceal orifice was identified and photographed. The scope was then slowly withdrawn over greater than 6 minutes. The mucosa was thoroughly inspected. No abnormalities were found. The scope was retroflexed in the rectum. Moderate internal hemorrhoids were noted. The scope was straightened and removed. Rubber-band ligation was performed on the left lateral, right anterior and right posterior hemorrhoidal columns. The patient was awakened and brought to recovery. Scope withdrawal time: 12 minutes Sedation time: 17 minutes EBL: 0 Findings: Internal and external hemorrhoids Post-procedure Recommendations: Colonoscopy in 10 years Disposition: PACU
[2023-12-29 16:35] VITALS: BP 109/77; PULSE 82; RESP 18; TEMP 36.1; O2SAT 99
[2023-12-29 16:40] VITALS: BP 135/94; PULSE 84; RESP 16; O2SAT 99
[2023-12-29 16:44] VITALS: BP 135/94; PULSE 82; RESP 16; O2SAT 96
[2023-12-29] MEDS: OXYCODONE IR 5 MG TABLET PO (16:49)
[2023-12-29 16:51] VITALS: BP 140/86; PULSE 78; RESP 16; O2SAT 99
[2023-12-29 16:55] VITALS: BP 143/88; PULSE 78; RESP 16; O2SAT 100
== END 2023-12-29 17:13 | disposition home or self-care (01) ==
PROVIDERS: Family Provider Obstetrics & Gynecology; PCP Registered Nurse Diabetes Educator; Referring Provider Surgery; Visit Provider Surgery
PROC: 0DJD8ZZ Inspection of Lower Intestinal Tract, Via Natural or Artificial Opening Endoscopic (ICD-10-PCS; CPT 45378; principal; 2023-12-29 16:00)
DX: K62.5 Hemorrhage of anus and rectum (principal); K64.8 Other hemorrhoids; K64.4 Residual hemorrhoidal skin tags
CPT/HCPCS: 46221; J2704

== ENCOUNTER → 2024-08-30 15:46 | Outpatient (CLI) | payer OTHER, SELFPAY ==
--- NOTE | 2024-08-30 15:47 | DI.MG.S_ITS ---
MM screening mammo BI: 08/30/2024. BI-RADS: 1 CLINICAL: 44-year old female for bilateral screening mammogram. Tyrer-Cuzick lifetime risk of 8.2%. No personal or first-degree family history of breast cancer. History of ovarian cancer in one first-degree relative. PRIOR EXAMS 01/10/2023. MAMMOGRAPHY TECHNIQUE: 2D and 3D (tomosynthesis) digital mammographic views obtained, with additional images as needed for full coverage. Current study was also evaluated with a Computer Aided Detection (CAD) system. DENSITY C. The breasts are heterogeneously dense, which may obscure small masses. MAMMOGRAPHY FINDINGS Bilateral: No suspicious mass, asymmetry, microcalcification, or other abnormality seen. No significant change from comparison. IMPRESSION: * No evidence of malignancy. RECOMMENDATIONS Bilateral * Annual screening mammography. OVERALL ASSESSMENT CATEGORY BI-RADS-1: Negative. The [employer] recommends annual screening mammography beginning at age 40 for women with average risk of breast cancer. ELECTRONICALLY SIGNED: Myla Godwin M.D. on 08/31/2024 at 09:06:29 AM PT Interpreting Station ID: [id number]
== END ==
PROVIDERS: Family Provider Obstetrics & Gynecology; PCP Registered Nurse Diabetes Educator; Referring Provider Registered Nurse Diabetes Educator; Visit Provider Registered Nurse Diabetes Educator
DX: Z12.31 Encounter for screening mammogram for malignant neoplasm of breast (principal); Z80.41 Family history of malignant neoplasm of ovary; R92.333 Mammographic heterogeneous density, bilateral breasts
CPT/HCPCS: 77063; 77067